=== PATIENT | female | born 1945 | race Caucasian/White ===

== ENCOUNTER → 2016-03-08 | Outpatient (CLI) | payer MEDICARE, MEDICAID ==
[2016-03-08 10:14] LABS: MEAN CORPUSCULAR HEMOGLOBIN 29.1 pg (27.0-33.0); MEAN CORPUSCULAR HGB CONC 33.3 g/dl (32.0-36.5); MEAN CORPUSCULAR VOLUME 87.4 fl (80.0-96.0); RED CELL DISTRIBUTION WIDTH 13.6 % (11.5-14.5); WHITE BLOOD COUNT 6.8 K/mm3 (4.0-10.0)
[2016-03-08 10:46] LABS: ALBUMIN 3.7 GM/DL (3.2-5.2); ALBUMIN/GLOBULIN RATIO 1.19 (1.00-1.93); ALKALINE PHOSPHATASE 105 U/L (45-117); ALT/SGPT 29 U/L (12-78); ANION GAP 7 MEQ/L (8-16); AST/SGOT 13 U/L (15-37); BILIRUBIN,TOTAL 0.2 MG/DL (0.2-1.0); BLOOD UREA NITROGEN 19 MG/DL (7-18); CALCIUM LEVEL 8.6 MG/DL (8.8-10.2); CARBON DIOXIDE LEVEL 31 MEQ/L (21-32); CHLORIDE LEVEL 105 MEQ/L (98-107); CHOLESTEROL LEVEL 174 MG/DL (<200); CREATININE FOR GFR 0.89 MG/DL (0.55-1.02); GLOMERULAR FILTRATION RATE > 60.0 (>45); GLUCOSE, FASTING 102 MG/DL (80-110); POTASSIUM SERUM 4.3 MEQ/L (3.5-5.1); SODIUM LEVEL 143 MEQ/L (136-145); TOTAL PROTEIN 6.8 GM/DL (6.4-8.2); TRIGLYCERIDES LEVEL 212 MG/DL (<150)
--- NOTE | 2016-03-08 10:54 | REP ---
PA AND LATERAL CHEST, 03/08/2016: INDICATION: Annual physical, history of hypertension and hypothyroidism. Comparison made with prior PA and lateral chest 09/21/2015. FINDINGS: The heart is of normal size and configuration. There is mild tortuosity in descending thoracic aorta. Lungs are clear bilaterally. There are moderate to advanced degenerative changes in the thoracic spine. IMPRESSION: 1. No acute cardiopulmonary process or interval change. MTDD
--- NOTE | 2016-03-09 08:29 | ECGEPIP ---
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
== END ==
LOC: M LAB 09:20
PROVIDERS: ATTEND Family Medicine
DX: R53.83 Other fatigue (principal); I10 Essential (primary) hypertension; Z79.899 Other long term (current) drug therapy

== ENCOUNTER → 2016-05-01 | Outpatient (CLI) | payer MEDICARE, MEDICAID ==
--- NOTE | 2016-05-01 14:53 | REPMRS ---
Patient History The patient states she has not had a clinical breast exam in over a year. No known family history of cancer. Digital Woman Screen Mammo: May 01, 2016 - Exam #: [id number] Bilateral CC and MLO view(s) were taken. Technologist: Juhi Foley, Technologist Prior study comparison: April 30, 2015, digital woman screen mammo performed at [facility] to [facility]. January 04, 2012, right breast digital mammo diagnostic unilateral, performed at [facility]. December 28, 2011, digital woman screen mammo performed at [facility]. FINDINGS: The breast tissue is almost entirely fat. There has been no change in the appearance of the mammogram from the prior studies. There is no interval development of dominant mass, architectural distortion, or clustered microcalcification typical of malignancy. ASSESSMENT: BI-RADS/ACR category 1 mammogram. Negative. Recommendation Routine screening mammogram of both breasts in 1 year (for women over age 40). This mammogram was interpreted with the aid of an FDA-approved computer-aided dectection system. Electronically Signed By: Yoni Cabrales MD 05/01/16 [id number]
== END ==
LOC: M WHC 12:34
PROVIDERS: ATTEND Family Medicine
DX: Z12.31 Encounter for screening mammogram for malignant neoplasm of breast (principal)

== ENCOUNTER → 2016-09-06 | Outpatient (CLI) | payer MEDICARE, MEDICAID ==
--- NOTE | 2016-09-06 10:22 | REP ---
AP pelvis and bilateral hips: There are no comparisons. AP pelvis: There is degenerative disc disease in the inferior lumbar spine. Mineralization is normal. The sacroiliac articulations are unremarkable. There is joint space narrowing of the hips bilaterally, slightly more advanced on the left. There are pelvic calcifications, likely phleboliths, however, renal calculi are not entirely discounted. Correlate with symptomatology. Left hip AP and frog-leg views: There is joint space narrowing, mild osteophytic growth and slight femoral head deformity compatible with osteoarthritis. If there is clinical concern for aseptic necrosis. Consider MRI. Mineralization is normal. No calcifications. No fracture or dislocation. Right hip AP and frog-leg views: There is mild joint space narrowing, slight osteophytic growth and slight femoral head deformity compatible with osteoarthritis. Mineralization is normal. There is no fracture or dislocation. No calcifications. If there is clinical concern for aseptic necrosis, consider MRI. Signed by José Luis Duran MD 09/06/2016 10:13 A
--- NOTE | 2016-09-06 10:24 | REP ---
Lumbar spine five views: There are no comparisons. Vertebral body heights are normal. There is degenerative disc disease at every lumbar level. There is no spondylolysis. There is grade 1 L4 spondylolisthesis, likely degenerative. There is mild facet osteoarthritis, particularly at the lower levels. The pedicles are unremarkable. The sacroiliac articulations are unremarkable. There are pelvic calcifications, likely phleboliths although ureteral calculi cannot be entirely discounted. Correlate with symptomatology. Impression: Multilevel degenerative disc disease. Grade 1 L4 spondylolisthesis, likely degenerative. Facet osteoarthritis. There is surgical clips in the abdominal right upper quadrant. Signed by José Luis Duran MD 09/06/2016 10:16 A
== END ==
LOC: M RAD 09:24
PROVIDERS: ATTEND Family Medicine
DX: M54.30 Sciatica, unspecified side (principal); M16.12 Unilateral primary osteoarthritis, left hip

== ENCOUNTER → 2020-05-12 | Outpatient (CLI) | payer MEDICARE, MEDICAID ==
[2020-05-12 12:24] LABS: HEMATOCRIT 51.8 % (36.0-47.0); MEAN CORPUSCULAR HEMOGLOBIN 29.4 pg (27.0-33.0); MEAN CORPUSCULAR HGB CONC 30.9 g/dl (32.0-36.5); MEAN CORPUSCULAR VOLUME 95.2 fl (80.0-96.0); PLATELET COUNT, AUTOMATED 216 10^3/uL (150-450); RED BLOOD COUNT 5.44 10^6/uL (4.00-5.40); WHITE BLOOD COUNT 7.7 10^3/uL (4.0-10.0)
[2020-05-12 12:46] LABS: HEMOGLOBIN A1c 5.8 %
[2020-05-12 13:02] LABS: ALBUMIN 3.7 GM/DL (3.2-5.2); ALT/SGPT 40 U/L (12-78); BILIRUBIN,TOTAL 0.3 MG/DL (0.2-1.0); BLOOD UREA NITROGEN 18 MG/DL (7-18); CALCIUM LEVEL 9.2 MG/DL (8.8-10.2); CARBON DIOXIDE LEVEL 31 MEQ/L (21-32); CHLORIDE LEVEL 103 MEQ/L (98-107); CHOLESTEROL LEVEL 193 MG/DL (<200); CHOLESTEROL RISK RATIO 4.707 (<5); CREATININE FOR GFR 0.76 MG/DL (0.55-1.30); GLOMERULAR FILTRATION RATE > 60.0 (>39); GLUCOSE, FASTING 98 MG/DL (70-100); HDL CHOLESTEROL 41 MG/DL (>40); LDL CHOLESTEROL 122 MG/DL (<100); NON-HDL-C 152 MG/DL; SODIUM LEVEL 140 MEQ/L (136-145); TOTAL PROTEIN 6.7 GM/DL (6.4-8.2); TRIGLYCERIDES LEVEL 152 MG/DL (<150)
--- NOTE | 2020-05-12 14:42 | REP ---
INDICATION: HTN,FATIGUE LAB 1ST EKG 2ND XR 3RD. COMPARISON: 03/08/2016. TECHNIQUE: Upright PA and lateral chest. FINDINGS: The lung horton are clear. Cardiac size is normal. The riya, mediastinum and skeletal structures are unremarkable. IMPRESSION: Essentially negative PA and lateral chest There is no interval change. <Electronically signed by José Luis Duran > 05/12/20 [id number]
--- NOTE | 2020-05-13 09:18 | ECGEPIP ---
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
== END ==
LOC: M LAB 10:57
PROVIDERS: ATTEND Family Medicine
DX: E03.9 Hypothyroidism, unspecified (principal); I10 Essential (primary) hypertension; R53.83 Other fatigue; R94.31 Abnormal electrocardiogram [ECG] [EKG]

== ENCOUNTER → 2020-05-26 | Outpatient (CLI) | payer MEDICARE, MEDICAID ==
[~2020-05-26] MED LIST: ISOVUE-300 61% 50ML VIAL As Ordered ONE; LIDOCAINE 1% MDV 20ML VIAL As Ordered ONE; TRIAMCINOLONE ACETONIDE SUSP 40 MG/ML VIAL (J3301) As Ordered ONE
--- NOTE | 2020-05-26 13:39 | REP ---
INDICATION: UNILATERAL PRIMARY OSTEOARTHRITIS, LEFT HIP. COMPARISON: None TECHNIQUE: The procedure was performed by CATARINO Villagran, under the direct supervision of Dr. Neal. The benefits and risks of the procedure were explained to the patient, and an informed consent was obtained. Directly prior to the start of the procedure, a formal time-out was completed in the procedure room. The left femoral neck joint space was localized using fluoroscopic guidance. The skin was prepped and draped in a sterile fashion. Approximately 5 mL of 1% Lidocaine 10 mg/ml was used as a local anesthetic. Using fluoroscopic guidance, a #22 gauge spinal needle was inserted and advanced into the left femoral neck joint space. Approximately 1 mL of Isovue 300 was injected to verify placement. Six mL of a solution containing 5 mL 1% lidocaine 10 mg/ml and 1 mL Kenalog 40 milligrams/milliliter was injected into the joint space. The needle was removed and hemostasis was achieved. FINDINGS: The patient tolerated the procedure well and there were no immediate complications. IMPRESSION: 1. Fluoroscopic guided intra-articular left hip pain injection. 0.3 minutes of fluoroscopy time was utilized for this procedure. Some fluoroscopic images are performed with last image hold technology. These images require no additional radiation. <Electronically signed by Margaret Elizabeth > 05/26/20 [id number] <Electronically signed by José Luis Neal > 05/26/20 [id number]
== END ==
LOC: M RADPRO 11:07
PROVIDERS: ATTEND Physician Assistant
DX: M16.12 Unilateral primary osteoarthritis, left hip (principal)
CPT/HCPCS: 20610; 77002; J3301; Q9967

== ENCOUNTER → 2020-12-07 | Outpatient (CLI) | payer MEDICARE, MEDICAID ==
[2020-12-07 11:53] LABS: HEMATOCRIT 47.9 % (36.0-47.0); HEMOGLOBIN 15.6 g/dl (12.0-15.5); MEAN CORPUSCULAR HEMOGLOBIN 28.9 pg (27.0-33.0); MEAN CORPUSCULAR HGB CONC 32.6 g/dl (32.0-36.5); MEAN CORPUSCULAR VOLUME 88.9 fl (80.0-96.0); PLATELET COUNT, AUTOMATED 236 10^3/uL (150-450); RED BLOOD COUNT 5.39 10^6/uL (4.00-5.40); WHITE BLOOD COUNT 8.6 10^3/uL (4.0-10.0)
[2020-12-07 12:03] LABS: INR 0.98; PROTHROMBIN TIME 13.4 SECONDS (12.7-14.5)
[2020-12-07 12:38] LABS: ALBUMIN 3.4 GM/DL (3.2-5.2); ALT/SGPT 35 U/L (12-78); BILIRUBIN,TOTAL 0.4 MG/DL (0.2-1.0); BLOOD UREA NITROGEN 22 MG/DL (7-18); CALCIUM LEVEL 9.5 MG/DL (8.8-10.2); CARBON DIOXIDE LEVEL 31 MEQ/L (21-32); CHLORIDE LEVEL 108 MEQ/L (98-107); CHOLESTEROL LEVEL 201 MG/DL (<200); CHOLESTEROL RISK RATIO 5.432 (<5); CREATININE FOR GFR 0.91 MG/DL (0.55-1.30); GLOMERULAR FILTRATION RATE > 60.0 (>39); GLUCOSE, FASTING 123 MG/DL (70-100); HDL CHOLESTEROL 37 MG/DL (>40); LDL CHOLESTEROL 130 MG/DL (<100); NON-HDL-C 164 MG/DL; POTASSIUM SERUM 4.4 MEQ/L (3.5-5.1); SODIUM LEVEL 143 MEQ/L (136-145); TOTAL 25(OH) VITAMIN D 30.6 NG/ML (30.0-100.0); TOTAL PROTEIN 6.3 GM/DL (6.4-8.2); TRIGLYCERIDES LEVEL 169 MG/DL (<150)
--- NOTE | 2020-12-07 12:59 | REP ---
INDICATION: PREOP COMPARISON: 05/12/2020 TECHNIQUE: PA and lateral. FINDINGS: The mediastinum and cardiac silhouette are normal. The lung horton are clear and without acute consolidation, effusion, or pneumothorax. The skeletal structures are intact and normal. IMPRESSION: No acute cardiopulmonary process. <Electronically signed by Mazin Glover > 12/07/20 [id number]
[2020-12-07 13:09] LABS: HEMOGLOBIN A1c 5.8 %
--- NOTE | 2020-12-08 07:20 | ECGEPIP ---
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
== END ==
LOC: M LAB 11:07
PROVIDERS: ATTEND Family Medicine
DX: R00.1 Bradycardia, unspecified (principal); I10 Essential (primary) hypertension; R53.83 Other fatigue; E03.9 Hypothyroidism, unspecified; Z79.899 Other long term (current) drug therapy

== ENCOUNTER → 2021-06-30 | Outpatient (CLI) | payer MEDICARE, MEDICAID ==
[~2021-06-30] MED LIST changes: -TRIAMCINOLONE ACETONIDE SUSP 40 MG/ML VIAL (J3301) As Ordered ONE; +methylPREDNISolone SUSP 40MG/ML 1ML VIAL (DEPO MEDROL) As Ordered ONE
== END ==
LOC: M RADPRO 13:19
PROVIDERS: ATTEND Physician Assistant
DX: M16.0 Bilateral primary osteoarthritis of hip (principal)
CPT/HCPCS: 20610; 77002; J1030; Q9967

== ENCOUNTER → 2021-12-08 | Outpatient (CLI) | payer MEDICARE, MEDICAID ==
[2021-12-08 19:03] LABS: HEMOGLOBIN A1c 5.9 %
[2021-12-08 19:27] LABS: ALBUMIN 3.4 GM/DL (3.2-5.2); ALT/SGPT 28 U/L (12-78); BILIRUBIN,TOTAL 0.2 MG/DL (0.2-1.0); BLOOD UREA NITROGEN 19 MG/DL (7-18); CALCIUM LEVEL 8.9 MG/DL (8.8-10.2); CARBON DIOXIDE LEVEL 30 MEQ/L (21-32); CHLORIDE LEVEL 104 MEQ/L (98-107); CHOLESTEROL LEVEL 185 MG/DL (<200); CHOLESTEROL RISK RATIO 5.967 (<5); CREATININE FOR GFR 0.88 MG/DL (0.55-1.30); GLOMERULAR FILTRATION RATE > 60.0 (>39); GLUCOSE, FASTING 106 MG/DL (70-100); HDL CHOLESTEROL 31 MG/DL (>40); LDL CHOLESTEROL 108 MG/DL (<100); MAGNESIUM LEVEL 1.9 MG/DL (1.8-2.4); NON-HDL-C 154 MG/DL; NT-PRO BNP 665 PG/ML (<125); POTASSIUM SERUM 4.4 MEQ/L (3.5-5.1); SODIUM LEVEL 139 MEQ/L (136-145); TOTAL PROTEIN 6.4 GM/DL (6.4-8.2); TRIGLYCERIDES LEVEL 229 MG/DL (<150)
[2021-12-08 20:03] LABS: TOTAL 25(OH) VITAMIN D 28.4 NG/ML (30.0-100.0)
== END ==
LOC: M PLALAB 16:03
PROVIDERS: ATTEND Family Medicine
DX: E88.81 Metabolic syndrome and other insulin resistance (principal); E66.01 Morbid (severe) obesity due to excess calories; I10 Essential (primary) hypertension; E78.2 Mixed hyperlipidemia; R60.0 Localized edema; Z79.899 Other long term (current) drug therapy

== ENCOUNTER → 2021-12-29 | Outpatient (CLI) | payer MEDICARE, MEDICAID | LOC: M CARPUL 09:19 | PROVIDERS: ATTEND Family Medicine | DX: R60.0 Localized edema (principal); I10 Essential (primary) hypertension; Z79.899 Other long term (current) drug therapy ==

== ENCOUNTER → 2022-04-06 | Outpatient (CLI) | payer MEDICAID, MEDICARE, OTHER | LOC: M RAD 09:22 | PROVIDERS: ATTEND Surgery | DX: I87.312 Chronic venous hypertension (idiopathic) with ulcer of left lower extremity (principal) ==

== ENCOUNTER → 2022-04-25 | Outpatient (POV) | payer MEDICARE, MEDICAID ==
[~2022-04-25] VITALS: Ht 157.5 cm; Wt 65.0 kg
[2022-04-25 10:15] VITALS: BP 149/80
== END ==
LOC: M IRPOV 09:50
PROVIDERS: ATTEND Radiology Diagnostic Radiology
DX: L97.829 Non-pressure chronic ulcer of other part of left lower leg with unspecified severity (principal); E55.9 Vitamin D deficiency, unspecified; R60.0 Localized edema; Z90.710 Acquired absence of both cervix and uterus; Z90.49 Acquired absence of other specified parts of digestive tract

== ENCOUNTER → 2022-06-02 | Outpatient (CLI) | payer MEDICAID, MEDICARE, OTHER ==
[~2022-06-02] MED LIST changes: +ISOVUE-300 61% 100ML VIAL As Ordered ONE; -ISOVUE-300 61% 50ML VIAL As Ordered ONE
== END ==
LOC: M RAD 12:39
PROVIDERS: ATTEND Physician Assistant Surgical
DX: M19.012 Primary osteoarthritis, left shoulder (principal); M19.011 Primary osteoarthritis, right shoulder
CPT/HCPCS: 20610; 77002; J1030; Q9967

== ENCOUNTER → 2022-07-21 | Outpatient (CLI) | payer MEDICARE, MEDICAID ==
[~2022-07-21] MED LIST changes: +ALLO100T PO; +AMMO12CR7 TOP; +BRIM0.2S13 OU; +COLC0.6T47 PO; -ISOVUE-300 61% 100ML VIAL As Ordered ONE; +LIDO1CRE2 TOP; -LIDOCAINE 1% MDV 20ML VIAL As Ordered ONE; +MELO7.5T35 PO; +METO1TAB7 PO; +NAPR-885 PO; +OMEP-173 PO; +OXYC-517 PO; +POTA1TAB23 PO; +SEMA2PEN PO; +TORS20TA2 PO; +XALA0.007 OU; -methylPREDNISolone SUSP 40MG/ML 1ML VIAL (DEPO MEDROL) As Ordered ONE
[2022-07-21 15:30] LABS: BASO % 0.3 % (0.0-1.0); EOS % 0.4 % (0.0-3.0); HEMATOCRIT 45.3 % (36.0-47.0); HEMOGLOBIN 14.7 g/dl (12.0-15.5); LYMPH # 2.2 10^3/uL (1.5-5.0); MEAN CORPUSCULAR HEMOGLOBIN 28.7 pg (27.0-33.0); MEAN CORPUSCULAR HGB CONC 32.5 g/dl (32.0-36.5); MEAN CORPUSCULAR VOLUME 88.5 fl (80.0-96.0); MONO # 0.4 10^3/uL (0.0-0.8); MONO % 3.9 % (2.0-8.0); NEUTROPHILS # 7.9 10^3/uL (1.5-8.5); NEUTROPHILS % 73.9 % (36.0-66.0); PLATELET COUNT, AUTOMATED 362 10^3/uL (150-450); RED BLOOD COUNT 5.12 10^6/uL (4.00-5.40); WHITE BLOOD COUNT 10.6 10^3/uL (4.0-10.0)
[2022-07-21 15:45] LABS: HEMOGLOBIN A1c 5.2 % (4.0-6.0)
[2022-07-21 15:52] LABS: C REACTIVE PROTEIN QUANTITATIV 0.5 MG/DL (<1.0)
[2022-07-21 15:53] LABS: ALBUMIN 3.4 G/DL (3.2-5.2); BILIRUBIN,TOTAL 0.3 MG/DL (0.3-1.2); CALCIUM LEVEL 8.7 MG/DL (8.3-10.6); CREATININE FOR GFR 0.99 MG/DL (0.55-1.30); GLOMERULAR FILTRATION RATE 58.4 (>39); POTASSIUM SERUM 3.8 MMOL/L (3.5-5.1); TOTAL PROTEIN 6.2 G/DL (5.7-8.2)
== END ==
LOC: M PLALAB 14:16
PROVIDERS: ATTEND Family Medicine
DX: M1A.0710 Idiopathic chronic gout, right ankle and foot, without tophus (tophi) (principal); I10 Essential (primary) hypertension; L08.9 Local infection of the skin and subcutaneous tissue, unspecified; E88.81 Metabolic syndrome and other insulin resistance; R60.0 Localized edema; Z79.899 Other long term (current) drug therapy

== ENCOUNTER 2022-08-03 11:58 | Inpatient (IN) | payer MEDICAID, MEDICARE ==
[~2022-08-03] VITALS: Ht 157.5 cm; Wt 116.5 kg
[2022-08-03] MEDS ORDERED: LIDOCAINE 2% 5ML JELLY UROJET TOP ONE (12:20)
[2022-08-03 12:40] LABS: BASO # 0.1 10^3/uL (0.0-0.2); BASO % 0.4 % (0.0-1.0); EOS % 0.2 % (0.0-3.0); HEMATOCRIT 43.7 % (36.0-47.0); HEMOGLOBIN 14.1 g/dl (12.0-15.5); LYMPH # 1.8 10^3/uL (1.5-5.0); LYMPH % 9.8 % (24.0-44.0); MEAN CORPUSCULAR HEMOGLOBIN 28.8 pg (27.0-33.0); MEAN CORPUSCULAR HGB CONC 32.3 g/dl (32.0-36.5); MEAN CORPUSCULAR VOLUME 89.2 fl (80.0-96.0); MONO # 0.9 10^3/uL (0.0-0.8); MONO % 5.1 % (2.0-8.0); NEUTROPHILS # 15.6 10^3/uL (1.5-8.5); NEUTROPHILS % 83.8 % (36.0-66.0); PLATELET COUNT, AUTOMATED 219 10^3/uL (150-450); WHITE BLOOD COUNT 18.5 10^3/uL (4.0-10.0)
[2022-08-03 12:52] LABS: INR 0.99; PROTHROMBIN TIME 13.3 SECONDS (12.5-14.5)
[2022-08-03] MEDS ORDERED: NS 1,000 ML IV ONE ×2 (12:55→19:25)
[2022-08-03 13:02] LABS: CK-MB VALUE MASS < 1.0 NG/ML (<3.6)
[2022-08-03 13:03] LABS: AMYLASE 51 U/L (30-118)
[2022-08-03 13:04] LABS: ALKALINE PHOSPHATASE 85 U/L (46-116); ALT/SGPT 23 U/L (7.0-40); AST/SGOT 22 U/L (<34); BILIRUBIN,DIRECT 0.2 MG/DL (<0.4); BILIRUBIN,TOTAL 0.5 MG/DL (0.3-1.2); BLOOD UREA NITROGEN 17 MG/DL (9-23); CALCIUM LEVEL 7.9 MG/DL (8.3-10.6); CARBON DIOXIDE LEVEL 28 MMOL/L (20-31); CHLORIDE LEVEL 102 MMOL/L (98-107); GLOMERULAR FILTRATION RATE > 60.0 (>39); GLUCOSE, FASTING 159 MG/DL (74-106); MAGNESIUM LEVEL 1.2 MG/DL (1.8-2.4); POTASSIUM SERUM 3.1 MMOL/L (3.5-5.1); SODIUM LEVEL 140 MMOL/L (136-145)
[2022-08-03] MEDS ORDERED: MAG SULF 1GM/100ML (MAG RUN) 1 GM in IV 1 EA IV ONE ×2 (13:15→13:25)
[2022-08-03 13:16] LABS: APPEARANCE, URINE HAZY (CLEAR); BACTERIA, URINE AUTO NEGATIVE (NEGATIVE); BILIRUBIN, URINE AUTO NEGATIVE (NEGATIVE); BLOOD, URINE BLOOD NEGATIVE (NEGATIVE); COLOR, URINE YELLOW (YELLOW); GLUCOSE, URINE (UA) AUTO NEGATIVE (NEGATIVE); KETONE, URINE AUTO TRACE mg/dL (NEGATIVE); LEUKOCYTE ESTERASE, URINE AUTO NEGATIVE (NEGATIVE); MUCUS, URINE SMALL (NEGATIVE); NITRITE, URINE AUTO NEGATIVE (NEGATIVE); PROTEIN, URINE AUTO 2+ mg/dL (NEGATIVE); RBC, URINE AUTO 1 /HPF (0-3); SPECIFIC GRAVITY URINE AUTO 1.023 (1.002-1.035); SQUAMOUS EPITHELIAL CELL UR AU 0 /HPF (0-6); WBC, URINE AUTO 5 /HPF (0-3)
[2022-08-03 13:17] LABS: CPK CREATINE PHOSPHOKINASE 33 U/L (34-145); MB/CK RELATIVE INDEX 3.03 (< OR =4)
[2022-08-03] MEDS ORDERED: VANCOMYCIN HCL 2,000 MG in D5W 500 ML IV ONE (13:25)
[2022-08-03] MEDS ORDERED: VANCOMYCIN HCL 1,000 MG, VIAL MATE ADAPTER 1 EACH in D5W 250 ML IV ONE (14:00)
[2022-08-03] MEDS ORDERED: oxyCODONE 5MG TAB PO ONE (14:25)
[2022-08-03] MEDS: VANCOMYCIN HCL 1,000 MG, VIAL MATE ADAPTER 1 EACH in D5W 250 ML IV ONE ×2 (14:41→16:14)
[2022-08-03 14:49] LABS: CK-MB VALUE MASS < 1.0 NG/ML (<3.6)
[2022-08-03 14:51] LABS: CPK CREATINE PHOSPHOKINASE 32 U/L (34-145); MB/CK RELATIVE INDEX 3.12 (< OR =4)
[2022-08-03 16:04] LABS: CK-MB VALUE MASS < 1.0 NG/ML (<3.6)
[2022-08-03 16:06] LABS: CPK CREATINE PHOSPHOKINASE 41 U/L (34-145); MB/CK RELATIVE INDEX 2.43 (< OR =4)
[2022-08-03] MEDS ORDERED: MAALOX 30 ML SUSP *UDC PO PRN (16:25)
[2022-08-03] MEDS ORDERED: MOM 30ML SUSPENSION UDC PO PRN (16:25)
[2022-08-03 16:36] LABS: ERYTHROCYTE SEDIMENTATION RATE 54 mm/hr (0-30)
[2022-08-03] MEDS ORDERED: POTASSIUM CHLORIDE 10MEQ SR TABLET PO ONE (16:40)
[2022-08-03] MEDS ORDERED: LIDO1CRE2 TOP (16:48)
[2022-08-03] MEDS ORDERED: NAPR-885 PO (16:48)
[2022-08-03] MEDS ORDERED: XALA0.007 OU (16:48)
[2022-08-03] MEDS ORDERED: POTA1TAB23 PO (16:48)
[2022-08-03] MEDS ORDERED: SEMA2PEN PO (16:48)
[2022-08-03] MEDS ORDERED: METO1TAB7 PO (16:48)
[2022-08-03] MEDS ORDERED: TORS20TA2 PO (16:48)
[2022-08-03] MEDS ORDERED: AMMO12CR7 TOP (16:48)
[2022-08-03] MEDS ORDERED: OXYC-517 PO (16:48)
[2022-08-03] MEDS ORDERED: BRIM0.2S13 OU (16:48)
[2022-08-03] MEDS ORDERED: MELO7.5T35 PO (16:48)
[2022-08-03] MEDS ORDERED: OMEP-173 PO (16:48)
[2022-08-03] MEDS ORDERED: COLC0.6T47 PO (16:48)
[2022-08-03] MEDS ORDERED: ALLO100T PO (16:48)
[2022-08-03] MEDS ORDERED: HOME MED LIST COMPLETE! XX SCH (16:50)
[2022-08-03 17:02] LABS: RSV AMPLIFICATION NEGATIVE (NEGATIVE)
[2022-08-03] MEDS: MAG SULF 1GM/100ML (MAG RUN) 1 GM in IV 1 EA IV SCH ×2 (17:23→22:37)
[2022-08-03] MEDS: NS 1,000 ML IV SCH (17:23)
[2022-08-03] MEDS: MORPHINE 2 MG/ML 1ML VIAL IV PRN ×2 (17:24→22:36)
[2022-08-03] MEDS ORDERED: LACTIC ACID 12% LOTION 225 GM BTL TOP PRN (18:50)
[2022-08-03] MEDS: PIPERACILLIN/TAZOBACTAM SOD 3.375 GM in D5W MINI-BAG PLUS 50 ML IV SCH (20:00)
[2022-08-03] MEDS ORDERED: KETAMINE HCL 200MG/20ML VIAL As Ordered ONE (20:56)
[2022-08-03] MEDS ORDERED: MIDAZOLAM INJ 2MG/2ML VIAL As Ordered ONE (20:56)
[2022-08-03] MEDS ORDERED: propofoL 200 MG/20 ML VIAL As Ordered ONE (20:56)
[2022-08-03] MEDS: LATANOPROST 0.005% OPHTH SOLN 2.5 ML OU SCH (21:00)
[2022-08-03] MEDS ORDERED: VANCOMYCIN HCL 1,000 MG, VIAL MATE ADAPTER 1 EACH in D5W 250 ML IV SCH (21:00)
[2022-08-03] MEDS ORDERED: fentaNYL 100 MCG/2 ML INJECTION As Ordered ONE (21:09)
[2022-08-03] MEDS ORDERED: LR 1,000 ML IV SCH (21:30)
[2022-08-03] MEDS ORDERED: fentaNYL 100 MCG/2 ML INJECTION IV PRN (21:30)
[2022-08-03 22:17] VITALS: BP 147/77; TEMP 97.2; O2SAT 98
[2022-08-04] MEDS: DOCUSATE SODIUM 100MG CAPSULE PO SCH ×3 (00:03→21:05)
[2022-08-04] MEDS: OMEPRAZOLE 20MG CAP PO SCH ×3 (00:03→21:05)
[2022-08-04] MEDS: PIPERACILLIN/TAZOBACTAM SOD 3.375 GM in D5W MINI-BAG PLUS 50 ML IV SCH ×4 (00:04→18:02)
[2022-08-04 01:04] LABS: CK-MB VALUE MASS 2.2 NG/ML (<3.6)
[2022-08-04 01:07] LABS: BLOOD UREA NITROGEN 13 MG/DL (9-23); CALCIUM LEVEL 7.6 MG/DL (8.3-10.6); CARBON DIOXIDE LEVEL 27 MMOL/L (20-31); CHLORIDE LEVEL 102 MMOL/L (98-107); CREATININE FOR GFR 0.69 MG/DL (0.55-1.30); GLOMERULAR FILTRATION RATE > 60.0 (>39); GLUCOSE, FASTING 148 MG/DL (74-106); POTASSIUM SERUM 3.8 MMOL/L (3.5-5.1); SODIUM LEVEL 138 MMOL/L (136-145)
[2022-08-04 01:10] LABS: MB/CK RELATIVE INDEX 5.64 (< OR =4)
[2022-08-04] MEDS: NS 1,000 ML IV SCH ×3 (01:38→23:25)
[2022-08-04] MEDS: MORPHINE 2 MG/ML 1ML VIAL IV PRN ×6 (03:09→23:35)
[2022-08-04 04:00] VITALS: BP 118/72; TEMP 97.4; O2SAT 90
[2022-08-04 04:36] LABS: BASO % 0.3 % (0.0-1.0); EOS # 0.1 10^3/uL (0.0-0.5); EOS % 0.5 % (0.0-3.0); HEMATOCRIT 37.6 % (36.0-47.0); HEMOGLOBIN 12.2 g/dl (12.0-15.5); LYMPH # 2.2 10^3/uL (1.5-5.0); LYMPH % 18.8 % (24.0-44.0); MEAN CORPUSCULAR HGB CONC 32.4 g/dl (32.0-36.5); MEAN CORPUSCULAR VOLUME 89.5 fl (80.0-96.0); MONO # 0.8 10^3/uL (0.0-0.8); MONO % 7.1 % (2.0-8.0); NEUTROPHILS # 8.5 10^3/uL (1.5-8.5); NEUTROPHILS % 72.9 % (36.0-66.0); PLATELET COUNT, AUTOMATED 177 10^3/uL (150-450); WHITE BLOOD COUNT 11.6 10^3/uL (4.0-10.0)
[2022-08-04 05:08] LABS: BLOOD UREA NITROGEN 12 MG/DL (9-23); CALCIUM LEVEL 7.6 MG/DL (8.3-10.6); CARBON DIOXIDE LEVEL 26 MMOL/L (20-31); CHLORIDE LEVEL 106 MMOL/L (98-107); CREATININE FOR GFR 0.76 MG/DL (0.55-1.30); GLOMERULAR FILTRATION RATE > 60.0 (>39); GLUCOSE, FASTING 122 MG/DL (74-106); POTASSIUM SERUM 3.8 MMOL/L (3.5-5.1); SODIUM LEVEL 138 MMOL/L (136-145)
[2022-08-04] MEDS: ACETAMINOPHEN TAB 650MG DOSE (2X325MG) PO PRN ×4 (06:44→22:06)
[2022-08-04 07:31] VITALS: BP 108/56; TEMP 96.7; O2SAT 95
[2022-08-04] MEDS: METOPROLOL SUCC (TopROL XL) 50MG **XL** TAB PO SCH (08:28)
[2022-08-04] MEDS: allopurinoL 100 MG TAB PO SCH (08:28)
[2022-08-04] MEDS: COLCHICINE 0.6 MG TABLET PO SCH (08:29)
[2022-08-04] MEDS ORDERED: ENOXAPARIN 40MG/0.4ML SYRINGE (J1650 PER 10MG) SC SCH (09:00)
[2022-08-04] MEDS ORDERED: ISOVUE-370 76% 100ML VIAL As Ordered ONE (09:03)
[2022-08-04] MEDS ORDERED: HEPARIN DRIP 25,000 UNITS in IV 1 EA IV SCH (12:10)
[2022-08-04] MEDS ORDERED: HEPARIN SOD (PORCINE) 5000UNITS/ML 1ML VIAL/SYRINGE IV ONE (12:10)
[2022-08-04] MEDS ORDERED: HEPARIN SOD (PORCINE) 5000UNITS/ML 1ML VIAL/SYRINGE IV PRN (12:10)
[2022-08-04 12:44] LABS: HEMATOCRIT 37.6 % (36.0-47.0); MEAN CORPUSCULAR HEMOGLOBIN 28.8 pg (27.0-33.0); MEAN CORPUSCULAR HGB CONC 31.9 g/dl (32.0-36.5); MEAN CORPUSCULAR VOLUME 90.4 fl (80.0-96.0); PLATELET COUNT, AUTOMATED 177 10^3/uL (150-450); RED BLOOD COUNT 4.16 10^6/uL (4.00-5.40); WHITE BLOOD COUNT 11.5 10^3/uL (4.0-10.0)
[2022-08-04 13:09] LABS: CK-MB VALUE MASS 1.4 NG/ML (<3.6)
[2022-08-04 13:12] LABS: MB/CK RELATIVE INDEX 3.5 (< OR =4)
[2022-08-04 14:15] VITALS: BP 101/58; TEMP 97.6; O2SAT 95
[2022-08-04 16:22] VITALS: BP 121/58; TEMP 96.8; O2SAT 94
[2022-08-04 20:00] VITALS: BP 108/69; TEMP 96.6; O2SAT 97
[2022-08-04 20:16] LABS: INR 1.17; PROTHROMBIN TIME 15.1 SECONDS (12.5-14.5)
[2022-08-04] MEDS: LATANOPROST 0.005% OPHTH SOLN 2.5 ML OU SCH (21:05)
[2022-08-05] VITALS (9 sets, daily range): BP systolic 98–120; BP diastolic 53–71; TEMP 96.5–97.8; O2SAT 97–100
[2022-08-05 00:13] LABS: INR 1.12; PROTHROMBIN TIME 14.6 SECONDS (12.5-14.5)
[2022-08-05 00:18] LABS: HEMATOCRIT 34.7 % (36.0-47.0); HEMOGLOBIN 10.7 g/dl (12.0-15.5); MEAN CORPUSCULAR HEMOGLOBIN 28.2 pg (27.0-33.0); MEAN CORPUSCULAR HGB CONC 30.8 g/dl (32.0-36.5); MEAN CORPUSCULAR VOLUME 91.3 fl (80.0-96.0); PLATELET COUNT, AUTOMATED 182 10^3/uL (150-450); WHITE BLOOD COUNT 12.2 10^3/uL (4.0-10.0)
[2022-08-05] MEDS: PIPERACILLIN/TAZOBACTAM SOD 3.375 GM in D5W MINI-BAG PLUS 50 ML IV SCH ×3 (01:06→12:34)
[2022-08-05] MEDS: HEPARIN DRIP 25,000 UNITS in IV 1 EA IV SCH ×2 (01:10→12:24)
[2022-08-05 02:36] LABS: INR 1.08; PROTHROMBIN TIME 14.2 SECONDS (12.5-14.5)
[2022-08-05 02:37] LABS: PARTIAL THROMBOPLASTIN TIME 34.3 SECONDS (24.8-34.2)
[2022-08-05] MEDS: MORPHINE 2 MG/ML 1ML VIAL IV PRN ×3 (05:39→14:13)
[2022-08-05 06:20] LABS: BASO # 0.1 10^3/uL (0.0-0.2); BASO % 0.6 % (0.0-1.0); EOS # 0.2 10^3/uL (0.0-0.5); EOS % 1.5 % (0.0-3.0); HEMATOCRIT 32.2 % (36.0-47.0); HEMOGLOBIN 10.1 g/dl (12.0-15.5); LYMPH % 23.9 % (24.0-44.0); MEAN CORPUSCULAR HEMOGLOBIN 28.2 pg (27.0-33.0); MEAN CORPUSCULAR HGB CONC 31.4 g/dl (32.0-36.5); MEAN CORPUSCULAR VOLUME 89.9 fl (80.0-96.0); MONO # 0.9 10^3/uL (0.0-0.8); MONO % 7.1 % (2.0-8.0); NEUTROPHILS # 8.2 10^3/uL (1.5-8.5); NEUTROPHILS % 66.2 % (36.0-66.0); PLATELET COUNT, AUTOMATED 179 10^3/uL (150-450); RED BLOOD COUNT 3.58 10^6/uL (4.00-5.40); WHITE BLOOD COUNT 12.4 10^3/uL (4.0-10.0)
[2022-08-05 06:32] LABS: INR 1.14; PROTHROMBIN TIME 14.8 SECONDS (12.5-14.5)
[2022-08-05 06:34] LABS: PARTIAL THROMBOPLASTIN TIME 93.3 SECONDS (24.8-34.2)
[2022-08-05 06:55] LABS: BLOOD UREA NITROGEN 16 MG/DL (9-23); CALCIUM LEVEL 7.4 MG/DL (8.3-10.6); CARBON DIOXIDE LEVEL 25 MMOL/L (20-31); CHLORIDE LEVEL 106 MMOL/L (98-107); CREATININE FOR GFR 0.83 MG/DL (0.55-1.30); GLOMERULAR FILTRATION RATE > 60.0 (>39); GLUCOSE, FASTING 124 MG/DL (74-106); MAGNESIUM LEVEL 1.9 MG/DL (1.8-2.4); POTASSIUM SERUM 3.9 MMOL/L (3.5-5.1); SODIUM LEVEL 139 MMOL/L (136-145)
[2022-08-05] MEDS: METOPROLOL SUCC (TopROL XL) 50MG **XL** TAB PO SCH (08:11)
[2022-08-05] MEDS: allopurinoL 100 MG TAB PO SCH (08:16)
[2022-08-05] MEDS: ACETAMINOPHEN TAB 650MG DOSE (2X325MG) PO PRN ×3 (08:16→15:40)
[2022-08-05] MEDS: OMEPRAZOLE 20MG CAP PO SCH (08:16)
[2022-08-05] MEDS: DOCUSATE SODIUM 100MG CAPSULE PO SCH (08:16)
[2022-08-05 08:23] LABS: HEMATOCRIT 32.3 % (36.0-47.0); HEMOGLOBIN 10.2 g/dl (12.0-15.5)
[2022-08-05] MEDS: COLCHICINE 0.6 MG TABLET PO SCH (10:30)
[2022-08-05] MEDS ORDERED: LIDOCAINE W/EPINEPHRINE 1% 20ML VIAL SC ONE (11:00)
[2022-08-05] MEDS ORDERED: LIDOCAINE W/EPINEPHRINE 1% 20ML VIAL SC PRN (11:15)
[2022-08-05 13:50] LABS: INR 1.05; PROTHROMBIN TIME 13.9 SECONDS (12.5-14.5)
[2022-08-05 13:51] LABS: PARTIAL THROMBOPLASTIN TIME 50.7 SECONDS (24.8-34.2)
[2022-08-05 14:50] LABS: HEMATOCRIT 34.3 % (36.0-47.0); MEAN CORPUSCULAR HEMOGLOBIN 28.1 pg (27.0-33.0); MEAN CORPUSCULAR HGB CONC 32.1 g/dl (32.0-36.5); MEAN CORPUSCULAR VOLUME 87.5 fl (80.0-96.0); PLATELET COUNT, AUTOMATED 174 10^3/uL (150-450); RED BLOOD COUNT 3.92 10^6/uL (4.00-5.40); WHITE BLOOD COUNT 11.8 10^3/uL (4.0-10.0)
== END 2022-08-05 15:58 | DRG 853 ==
LOC: M ED 11:58 → M ED INP 16:25 → M PCU 22:05
PROVIDERS: ADMIT Internal Medicine; ATTEND Internal Medicine
PROC: 0JBP0ZZ Excision of Left Lower Leg Subcutaneous Tissue and Fascia, Open Approach (ICD-10-PCS; principal; 2022-08-03 18:53)
PROC: 30233N1 Transfusion of Nonautologous Red Blood Cells into Peripheral Vein, Percutaneous Approach (ICD-10-PCS; 2022-08-05)
PROC: B246ZZZ Ultrasonography of Right and Left Heart (ICD-10-PCS; 2022-08-05)
DX: A41.9 Sepsis, unspecified organism (principal); J96.01 Acute respiratory failure with hypoxia; I26.99 Other pulmonary embolism without acute cor pulmonale; L03.116 Cellulitis of left lower limb; Z68.41 Body mass index [BMI] 40.0-44.9, adult; I96 Gangrene, not elsewhere classified; E87.20 Acidosis, unspecified; I47.20 Ventricular tachycardia, unspecified; J90 Pleural effusion, not elsewhere classified; J98.11 Atelectasis; I82.402 Acute embolism and thrombosis of unspecified deep veins of left lower extremity; I82.441 Acute embolism and thrombosis of right tibial vein; I82.411 Acute embolism and thrombosis of right femoral vein; D62 Acute posthemorrhagic anemia; I10 Essential (primary) hypertension; E66.01 Morbid (severe) obesity due to excess calories; M19.90 Unspecified osteoarthritis, unspecified site; M54.9 Dorsalgia, unspecified; G89.29 Other chronic pain; K21.9 Gastro-esophageal reflux disease without esophagitis; R55 Syncope and collapse; E87.6 Hypokalemia; E83.42 Hypomagnesemia; Z90.79 Acquired absence of other genital organ(s); Z90.49 Acquired absence of other specified parts of digestive tract; Z79.899 Other long term (current) drug therapy; Z20.822 Contact with and (suspected) exposure to COVID-19

== ENCOUNTER 2023-03-12 10:40 | Inpatient (IN) | payer MEDICARE, MEDICAID ==
[~2023-03-12] VITALS: Ht 157.5 cm; Wt 99.0 kg
[2023-03-12 11:52] LABS: BASO # 0.1 10^3/uL (0.0-0.2); BASO % 0.6 % (0.0-1.0); EOS # 0.2 10^3/uL (0.0-0.5); EOS % 2.1 % (0.0-3.0); HEMATOCRIT 44.9 % (36.0-47.0); HEMOGLOBIN 14.2 g/dl (12.0-15.5); LYMPH # 2.1 10^3/uL (1.5-5.0); LYMPH % 20.5 % (24.0-44.0); MEAN CORPUSCULAR HEMOGLOBIN 27.6 pg (27.0-33.0); MEAN CORPUSCULAR HGB CONC 31.6 g/dl (32.0-36.5); MEAN CORPUSCULAR VOLUME 87.4 fl (80.0-96.0); MONO # 0.4 10^3/uL (0.0-0.8); MONO % 4.1 % (2.0-8.0); NEUTROPHILS # 7.3 10^3/uL (1.5-8.5); NEUTROPHILS % 72.4 % (36.0-66.0); PLATELET COUNT, AUTOMATED 385 10^3/uL (150-450); RED BLOOD COUNT 5.14 10^6/uL (4.00-5.40); WHITE BLOOD COUNT 10.1 10^3/uL (4.0-10.0)
[2023-03-12 12:03] LABS: INR 1.17; PROTHROMBIN TIME 14.5 SECONDS (12.5-14.5)
[2023-03-12 12:09] LABS: ERYTHROCYTE SEDIMENTATION RATE 33 mm/hr (0-30)
[2023-03-12 12:16] LABS: C REACTIVE PROTEIN QUANTITATIV < 0.40 MG/DL (<1.0)
[2023-03-12 12:18] LABS: BLOOD UREA NITROGEN 19 MG/DL (9-23); CALCIUM LEVEL 10.2 MG/DL (8.3-10.6); CARBON DIOXIDE LEVEL 27 MMOL/L (20-31); CHLORIDE LEVEL 105 MMOL/L (98-107); CREATININE FOR GFR 0.64 MG/DL (0.55-1.30); GLOMERULAR FILTRATION RATE > 60.0 (>39); GLUCOSE, FASTING 102 MG/DL (74-106); POTASSIUM SERUM 4.5 MMOL/L (3.5-5.1); SODIUM LEVEL 139 MMOL/L (136-145)
[2023-03-12 12:51] LABS: RSV AMPLIFICATION NEGATIVE (NEGATIVE)
[2023-03-12] MEDS ORDERED: ISOVUE-370 76% 100ML VIAL As Ordered ONE (13:25)
[2023-03-12] MEDS: NS 1,000 ML IV ONE (13:34)
[2023-03-12] MEDS: MORPHINE 4 MG/ML 1ML VIAL IV ONE (13:34)
[2023-03-12] MEDS ORDERED: VANCOMYCIN HCL 2,000 MG in IV FLUID PLACE HOLDER 1 EA IV ONE (15:10)
[2023-03-12 15:34] LABS: CK-MB VALUE MASS < 1.0 NG/ML (<3.6); MAGNESIUM LEVEL 1.7 MG/DL (1.8-2.4)
[2023-03-12 15:36] LABS: CPK CREATINE PHOSPHOKINASE 36 U/L (34-145); MB/CK RELATIVE INDEX 2.77 (< OR =4)
[2023-03-12] MEDS: VANCOMYCIN HCL 1,000 MG, VIAL MATE ADAPTER 1 EACH in D5W 250 ML IV ONE ×2 (15:41→16:54)
[2023-03-12] MEDS ORDERED: MED REC IN PROGRESS XX SCH (16:40)
[2023-03-12] MEDS ORDERED: LISI2.5T9 PO (17:33)
[2023-03-12] MEDS ORDERED: ELIQ5TAB PO (17:33)
[2023-03-12] MEDS ORDERED: FURO40TA2 PO (17:33)
[2023-03-12] MEDS ORDERED: ACET-897 PO (17:35)
[2023-03-12] MEDS ORDERED: HOME MED LIST COMPLETE! XX SCH (17:40)
[2023-03-12 18:30] VITALS: BP 178/82; TEMP 98.4; O2SAT 98
[2023-03-12] MEDS: PERCOCET 5MG/325MG TAB PO PRN (18:44)
[2023-03-12] MEDS: PIPERACILLIN/TAZOBACTAM SOD 4.5 GM in D5W MINI-BAG PLUS 50 ML IV SCH (18:44)
[2023-03-12] MEDS ORDERED: HEPARIN SOD (PORCINE) 5000UNITS/ML 1ML VIAL/SYRINGE IV PRN (20:00)
[2023-03-12] MEDS ORDERED: APIXABAN 5 MG TAB (ELIQUIS) PO SCH (21:00)
[2023-03-12 21:40] VITALS: BP 92/66; TEMP 97.5; O2SAT 96
[2023-03-12] MEDS: HEPARIN DRIP 25,000 UNITS in IV 1 EA IV SCH (22:12)
[2023-03-12] MEDS: LATANOPROST 0.005% OPHTH SOLN 2.5 ML OU SCH (22:13)
[2023-03-12] MEDS: BRIMONIDINE 0.15% OPHTH SOLN 5 ML OU SCH (22:13)
[2023-03-12 22:40] VITALS: BP 122/96; TEMP 98.8; O2SAT 96
[2023-03-13] MEDS: MORPHINE 2 MG/ML 1ML VIAL IV PRN (02:28)
[2023-03-13 04:30] LABS: HEMATOCRIT 39.6 % (36.0-47.0); HEMOGLOBIN 12.4 g/dl (12.0-15.5); MEAN CORPUSCULAR HEMOGLOBIN 27.9 pg (27.0-33.0); MEAN CORPUSCULAR HGB CONC 31.3 g/dl (32.0-36.5); PLATELET COUNT, AUTOMATED 346 10^3/uL (150-450); RED BLOOD COUNT 4.45 10^6/uL (4.00-5.40); WHITE BLOOD COUNT 8.9 10^3/uL (4.0-10.0)
[2023-03-13 04:42] LABS: ERYTHROCYTE SEDIMENTATION RATE 19 mm/hr (0-30)
[2023-03-13 05:05] VITALS: BP 99/57; TEMP 97.9; O2SAT 94
[2023-03-13 05:10] VITALS: BP 118/58
[2023-03-13 05:23] LABS: BLOOD UREA NITROGEN 20 MG/DL (9-23); CALCIUM LEVEL 9.5 MG/DL (8.3-10.6); CARBON DIOXIDE LEVEL 27 MMOL/L (20-31); CHLORIDE LEVEL 104 MMOL/L (98-107); CREATININE FOR GFR 0.85 MG/DL (0.55-1.30); GLOMERULAR FILTRATION RATE > 60.0 (>39); GLUCOSE, FASTING 102 MG/DL (74-106); MAGNESIUM LEVEL 1.7 MG/DL (1.8-2.4); SODIUM LEVEL 138 MMOL/L (136-145)
[2023-03-13 08:00] LABS: VANCOMYCIN RANDOM 13.6 UG/ML
[2023-03-13] MEDS ORDERED: ENOXAPARIN 40MG/0.4ML SYRINGE (J1650 PER 10MG) SC SCH (09:00)
[2023-03-13] MEDS: VANCOMYCIN HCL 750 MG, VIAL MATE ADAPTER 1 EACH in D5W 250 ML IV SCH (10:30)
[2023-03-13] MEDS: MAALOX 30 ML SUSP *UDC PO PRN (10:31)
[2023-03-13] MEDS: allopurinoL 100 MG TAB PO SCH (10:32)
[2023-03-13] MEDS: FUROSEMIDE 40 MG TAB PO SCH (10:32)
[2023-03-13] MEDS: MAGNESIUM OXIDE 400MG TAB (MAG-OX) PO ONE (10:32)
[2023-03-13] MEDS: LISINOPRIL *2.5 MG* TAB PO SCH (10:33)
[2023-03-13] MEDS: METOPROLOL SUCC (TopROL XL) 50MG **XL** TAB PO SCH (10:33)
[2023-03-13] MEDS: OMEPRAZOLE 20MG CAP PO SCH (10:33)
[2023-03-13 14:00] VITALS: BP 92/50; TEMP 98.1; O2SAT 92
[2023-03-13] MEDS ORDERED: ENOXAPARIN 100MG/1ML SYRINGE (J1650 PER 10MG) SC SCH (15:00)
[2023-03-13] MEDS: APIXABAN 5 MG TAB (ELIQUIS) PO ONE (17:36)
[2023-03-13 20:12] VITALS: BP 90/52; TEMP 97.7; O2SAT 94
[2023-03-13] MEDS: APIXABAN 5 MG TAB (ELIQUIS) PO SCH (20:30)
[2023-03-14 05:20] VITALS: BP 96/55; TEMP 97.9; O2SAT 92
[2023-03-14 06:01] LABS: HEMOGLOBIN 11.5 g/dl (12.0-15.5); MEAN CORPUSCULAR HEMOGLOBIN 28.3 pg (27.0-33.0); MEAN CORPUSCULAR HGB CONC 31.9 g/dl (32.0-36.5); MEAN CORPUSCULAR VOLUME 88.5 fl (80.0-96.0); PLATELET COUNT, AUTOMATED 291 10^3/uL (150-450); RED BLOOD COUNT 4.07 10^6/uL (4.00-5.40)
[2023-03-14 06:34] LABS: BLOOD UREA NITROGEN 23 MG/DL (9-23); CALCIUM LEVEL 8.6 MG/DL (8.3-10.6); CARBON DIOXIDE LEVEL 27 MMOL/L (20-31); CHLORIDE LEVEL 105 MMOL/L (98-107); CREATININE FOR GFR 0.81 MG/DL (0.55-1.30); GLOMERULAR FILTRATION RATE > 60.0 (>39); GLUCOSE, FASTING 92 MG/DL (74-106); MAGNESIUM LEVEL 1.5 MG/DL (1.8-2.4); PHOSPHORUS LEVEL 4.3 MG/DL (2.4-5.1); POTASSIUM SERUM 4.1 MMOL/L (3.5-5.1); SODIUM LEVEL 139 MMOL/L (136-145)
[2023-03-14] MEDS: MAG SULF 1GM/100ML (MAG RUN) 1 GM in IV 1 EA IV SCH (11:20)
[2023-03-14 14:00] VITALS: BP 106/51; TEMP 96.4; O2SAT 94
[2023-03-14 20:15] VITALS: BP 112/58; TEMP 97.7; O2SAT 95
[2023-03-15 05:28] VITALS: BP 107/54; TEMP 97.9; O2SAT 95
[2023-03-15 05:45] LABS: BASO # 0.1 10^3/uL (0.0-0.2); BASO % 0.8 % (0.0-1.0); EOS # 0.3 10^3/uL (0.0-0.5); EOS % 4.1 % (0.0-3.0); HEMATOCRIT 36.7 % (36.0-47.0); HEMOGLOBIN 11.9 g/dl (12.0-15.5); LYMPH # 2.3 10^3/uL (1.5-5.0); MEAN CORPUSCULAR HEMOGLOBIN 28.1 pg (27.0-33.0); MEAN CORPUSCULAR HGB CONC 32.4 g/dl (32.0-36.5); MEAN CORPUSCULAR VOLUME 86.8 fl (80.0-96.0); MONO # 0.5 10^3/uL (0.0-0.8); MONO % 6.3 % (2.0-8.0); NEUTROPHILS # 4.2 10^3/uL (1.5-8.5); NEUTROPHILS % 57.4 % (36.0-66.0); PLATELET COUNT, AUTOMATED 280 10^3/uL (150-450); RED BLOOD COUNT 4.23 10^6/uL (4.00-5.40); WHITE BLOOD COUNT 7.3 10^3/uL (4.0-10.0)
[2023-03-15 06:07] LABS: BLOOD UREA NITROGEN 18 MG/DL (9-23); CARBON DIOXIDE LEVEL 27 MMOL/L (20-31); CHLORIDE LEVEL 105 MMOL/L (98-107); GLOMERULAR FILTRATION RATE > 60.0 (>39); GLUCOSE, FASTING 92 MG/DL (74-106); MAGNESIUM LEVEL 1.6 MG/DL (1.8-2.4); PHOSPHORUS LEVEL 3.6 MG/DL (2.4-5.1); POTASSIUM SERUM 4.3 MMOL/L (3.5-5.1); SODIUM LEVEL 138 MMOL/L (136-145)
[2023-03-15] MEDS: MAGNESIUM OXIDE 400MG TAB (MAG-OX) PO SCH (09:18)
[2023-03-15] MEDS: ACETAMINOPHEN TAB 650MG DOSE (2X325MG) PO PRN (09:19)
[2023-03-15] MEDS: MOM 30ML SUSPENSION UDC PO PRN (09:19)
[2023-03-15 14:00] VITALS: BP 115/62; TEMP 97.5; O2SAT 95
[2023-03-15 20:54] VITALS: BP 116/60; TEMP 97.3; O2SAT 95
[2023-03-15] MEDS: BACTRIM 160MG/800MG DS TAB PO SCH (21:28)
[2023-03-16 05:28] VITALS: BP 122/63; TEMP 97.9; O2SAT 94
[2023-03-16] MEDS: MUPIROCIN 2% OINT 22 GM TUBE TOP SCH (08:51)
[2023-03-17 06:00] VITALS: BP 110/61; TEMP 98.4; O2SAT 95
[2023-03-17] MEDS: NYSTATIN 100,000 UNITS/GM TOPICAL PWD 15GM TOP SCH (12:25)
[2023-03-17] MEDS ORDERED: oxyCODONE 5MG TAB PO PRN (14:00)
[2023-03-18 04:50] VITALS: BP 106/72; TEMP 97.7; O2SAT 93
[2023-03-19 06:00] VITALS: BP 127/58; TEMP 97.5; O2SAT 94
[2023-03-20 06:57] VITALS: BP 109/58; TEMP 97.9; O2SAT 94
[2023-03-20 21:15] VITALS: BP 118/59; TEMP 97.7; O2SAT 98
[2023-03-21 05:18] VITALS: BP 108/58; TEMP 97.5; TEMP 97.7; O2SAT 94
[2023-03-22 05:40] VITALS: BP 118/67; TEMP 97.9; O2SAT 95
[2023-03-22 08:00] VITALS: BP 136/68; TEMP 97.5; O2SAT 96
[2023-03-23 05:21] VITALS: BP 132/65; TEMP 97.8; O2SAT 96
[2023-03-24 05:23] VITALS: BP 127/66; TEMP 98.1; O2SAT 97
[2023-03-25 04:55] VITALS: BP 122/62; TEMP 97.7; O2SAT 99
[2023-03-26 06:18] VITALS: BP 126/74; TEMP 97.2; O2SAT 97
[2023-03-27 05:10] VITALS: BP 126/71; TEMP 97.5; O2SAT 97
[2023-03-27 09:00] VITALS: BP 128/61
[2023-03-28 06:00] VITALS: BP 109/66; TEMP 97.7; O2SAT 97
[2023-03-29 06:13] VITALS: BP 116/63; TEMP 97.3; O2SAT 95
[2023-03-29] MEDS ORDERED: OMEP-173 PO (10:06)
[2023-03-29] MEDS ORDERED: MAGN400T2 PO (10:06)
[2023-03-30 05:44] VITALS: BP 116/62; TEMP 98.1; O2SAT 96
[2023-03-30 08:37] VITALS: BP 114/60
== END 2023-03-30 09:05 | DRG 593 ==
LOC: M ED 10:40 → M ED INP 16:43 → EEVIPCON 16:43 → M MSPAV 18:14
PROVIDERS: ADMIT Student in an Organized Health Care Education/Training Program; ATTEND Internal Medicine Nephrology
DX: L97.119 Non-pressure chronic ulcer of right thigh with unspecified severity (principal); L03.115 Cellulitis of right lower limb; I10 Essential (primary) hypertension; K21.9 Gastro-esophageal reflux disease without esophagitis; M54.50 Low back pain, unspecified; M60.9 Myositis, unspecified; I48.91 Unspecified atrial fibrillation; M19.90 Unspecified osteoarthritis, unspecified site; E66.01 Morbid (severe) obesity due to excess calories; L97.219 Non-pressure chronic ulcer of right calf with unspecified severity; I87.8 Other specified disorders of veins; B95.62 Methicillin resistant Staphylococcus aureus infection as the cause of diseases classified elsewhere; Z79.899 Other long term (current) drug therapy; Z66 Do not resuscitate

== ENCOUNTER → 2024-06-06 | Outpatient (REF) | payer MEDICARE, MEDICAID ==
[~2024-06-06] MED LIST changes: +ACET-897 PO; +ELIQ5TAB PO; +FURO40TA2 PO; -LIDO1CRE2 TOP; +LIDO4CRE12 TOP; +LISI2.5T9 PO; +MAGN400T2 PO
[2024-06-06 13:29] LABS: BASO # 0.1 10^3/uL (0.0-0.2); BASO % 0.9 % (0.0-1.0); EOS # 0.4 10^3/uL (0.0-0.5); EOS % 3.6 % (0.0-3.0); HEMATOCRIT 49.3 % (36.0-47.0); HEMOGLOBIN 15.7 g/dl (12.0-15.5); LYMPH # 2.2 10^3/uL (1.5-5.0); LYMPH % 19.9 % (24.0-44.0); MEAN CORPUSCULAR HEMOGLOBIN 28.5 pg (27.0-33.0); MEAN CORPUSCULAR HGB CONC 31.8 g/dl (32.0-36.5); MEAN CORPUSCULAR VOLUME 89.6 fl (80.0-96.0); MONO # 0.4 10^3/uL (0.0-0.8); MONO % 3.9 % (2.0-8.0); NEUTROPHILS # 7.8 10^3/uL (1.5-8.5); NEUTROPHILS % 71.2 % (36.0-66.0); PLATELET COUNT, AUTOMATED 320 10^3/uL (150-450); WHITE BLOOD COUNT 10.9 10^3/uL (4.0-10.0)
[2024-06-06 13:42] LABS: TOTAL 25(OH) VITAMIN D 20.5 NG/ML (20.0-100.0)
[2024-06-06 13:44] LABS: C REACTIVE PROTEIN QUANTITATIV < 0.50 MG/DL (<1.0)
[2024-06-06 13:45] LABS: ALBUMIN 3.4 G/DL (3.2-5.2); ALKALINE PHOSPHATASE 102 U/L (35-104); ALT/SGPT 31 U/L (7.0-40); AST/SGOT 19 U/L (<34); BILIRUBIN,TOTAL 0.4 MG/DL (0.3-1.2); BLOOD UREA NITROGEN 15 MG/DL (9-23); CALCIUM LEVEL 9.2 MG/DL (8.3-10.6); CARBON DIOXIDE LEVEL 34 MMOL/L (20-31); CHLORIDE LEVEL 101 MMOL/L (98-107); CHOLESTEROL LEVEL 128 MG/DL (<200); CHOLESTEROL RISK RATIO 4.05 (<5); CREATININE FOR GFR 0.75 MG/DL (0.55-1.30); GLOMERULAR FILTRATION RATE 82.5 (>39); GLUCOSE, FASTING 145 MG/DL (74-106); HDL CHOLESTEROL 31.6 MG/DL (>40); LDL CHOLESTEROL 51.8 MG/DL (<100); MAGNESIUM LEVEL 1.6 MG/DL (1.8-2.4); NON-HDL-C 96.4 MG/DL; POTASSIUM SERUM 3.6 MMOL/L (3.5-5.1); SODIUM LEVEL 143 MMOL/L (136-145); TOTAL PROTEIN 6.5 G/DL (5.7-8.2); TRIGLYCERIDES LEVEL 223 MG/DL (<150)
[2024-06-06 13:49] LABS: URIC ACID 8.4 MG/DL (3.1-7.8)
[2024-06-06 18:14] LABS: HEMOGLOBIN A1c 5.2 % (4.0-6.0)
== END ==
LOC: M SFHCPLAZ 09:48
PROVIDERS: ATTEND Family Medicine
DX: Z92.81 Personal history of extracorporeal membrane oxygenation (ECMO) (principal); I10 Essential (primary) hypertension; L08.9 Local infection of the skin and subcutaneous tissue, unspecified; E78.2 Mixed hyperlipidemia; Z79.899 Other long term (current) drug therapy; M1A.0710 Idiopathic chronic gout, right ankle and foot, without tophus (tophi); E66.01 Morbid (severe) obesity due to excess calories; Z74.01 Bed confinement status